=== PATIENT | male | born 1985 | race Caucasian/White ===

== ENCOUNTER 2016-12-24 14:44 | Emergency (ER) | payer BC ==
[2016-12-24 15:08] VITALS: BP 133/73
--- NOTE | 2016-12-24 16:13 | UC ---
Laceration HPI - HPI Summary HPI Summary: Patient presents with sinus pain and pressure x 3 days, with recent URI last week. He denies fever, chills, sinus discharge or bleeding. He states he feels plugged in his sinuses. He denies QUAN, sore throat, chest congestion, chest pain , abdominal pain, nausea, vomiting, or diarrhea. - History Of Current Complaint Chief Complaint: UCGeneralIllness Stated Complaint: SINUS PAIN Time Seen by Provider: 12/24/16 15:40 Hx Obtained From: Patient Laceration Location: Finger Onset/Duration: Sudden Onset, Lasting Hours Severity: Mild Pain Intensity: 0 Pain Scale Used: 0-10 Numeric Aggravating Factors: Movement - Allergies/Home Medications Allergies/Adverse Reactions: Allergies Allergy/AdvReac Type Severity Reaction Status Date / Time No Known Allergies Allergy Verified 12/24/16 15:09 PMH/Surg Hx/FS Hx/Imm Hx Previously Healthy: Yes - Surgical History Surgical History: Yes Surgery Procedure, Year, and Place: RIGHT ELBOW BONE SPUR REMOVAL. HERNIA REPAIR AN INFANT. - Family History Known Family History: Positive: None - Social History Occupation: Employed Full-time Lives: Alone Alcohol Use: Occasionally Substance Use Type: None Smoking Status (MU): Never Smoked Tobacco Review of Systems Constitutional: Negative Skin: Negative Eyes: Negative ENT: Sinus Pain/Tenderness Respiratory: Negative Cardiovascular: Negative Gastrointestinal: Negative Genitourinary: Negative Motor: Negative Neurovascular: Negative Musculoskeletal: Negative Neurological: Negative Psychological: Negative All Other Systems Reviewed And Are Negative: Yes Physical Exam Triage Information Reviewed: Yes Appearance: Well-Appearing Vital Signs: Initial Vital Signs Temp 97.9 F 12/24/16 15:03 Pulse 71 12/24/16 15:03 Resp 18 12/24/16 15:03 BP 133/73 12/24/16 15:03 Pulse Ox 99 12/24/16 15:03 Eye Exam: Normal ENT: Positive: Nasal congestion, Other: - tenderness on palpation of maxillary and frontal sinuses. Dental Exam: Normal Neck exam: Normal Neck: Positive: 1 Respiratory Exam: Normal Cardiovascular Exam: Normal Abdominal Exam: Normal Musculoskeletal Exam: Normal Neurological Exam: Normal Psychological Exam: Normal Skin Exam: Normal Laceration Course/Dx - Course/Dx Course Of Treatment: Patient presents with sinusitis and was treated with ABX. - Differential Dx - Laceration/Wound Differental Diagnoses: Other - sinusitis Provider Diagnoses: sinusitis Discharge - Discharge Plan Condition: Stable Disposition: HOME Prescriptions: Clarithromycin TAB* [Biaxin 500 MG TAB*] 500 mg PO BID #20 tab Patient Education Materials: Sinusitis (ED) Referrals: Denis Shell MD [Primary Care Provider] - Additional Instructions: If your symptoms persist follow up with your PCP.
--- NOTE | 2016-12-24 16:20 | UC ---
Respiratory Complaint HPI - HPI Summary HPI Summary: camilo presents with an unremarkable past medical history. He presents today with complaints of left sided sinus pain and pressure. He states he has been taking sudafed with no improvement. He states the pressure radiates to his left ear. He denies fever, chills, vision or hearing loss, injury or trauma. He denies nasal discharge, or stuffiness. - History of Current Complaint Chief Complaint: UCGeneralIllness Stated Complaint: SINUS PAIN Time Seen by Provider: 12/24/16 15:40 Hx Obtained From: Patient Onset/Duration: Gradual Onset, Lasting Days Severity Initially: Moderate Severity Currently: Moderate Pain Intensity: 0 Pain Scale Used: 0-10 Numeric Aggravating Factors: Other - palpation Alleviating Factors: Nothing Associated Signs And Symptoms: Positive: Negative, Nasal Congestion, Sinus Discomfort - Risk Factors Pulmonary Embolism Risk Factors: Negative Cardiac Risk Factors: Negative Pseudomonas Risk Factors: Negative Tuberculosis Risk Factors: Negative - Allergies/Home Medications Allergies/Adverse Reactions: Allergies Allergy/AdvReac Type Severity Reaction Status Date / Time No Known Allergies Allergy Verified 12/24/16 15:09 PMH/Surg Hx/FS Hx/Imm Hx Previously Healthy: Yes - Surgical History Surgical History: Yes Surgery Procedure, Year, and Place: RIGHT ELBOW BONE SPUR REMOVAL. HERNIA REPAIR AN . - Family History Known Family History: Positive: None - Social History Occupation: Employed Full-time Lives: Alone Alcohol Use: Occasionally Substance Use Type: None Smoking Status (MU): Never Smoked Tobacco Review of Systems Constitutional: Negative Skin: Negative Eyes: Negative ENT: Sinus Pain/Tenderness Respiratory: Negative Cardiovascular: Negative Gastrointestinal: Negative Genitourinary: Negative Motor: Negative Neurovascular: Negative Musculoskeletal: Negative Neurological: Negative Psychological: Negative All Other Systems Reviewed And Are Negative: Yes Physical Exam Triage Information Reviewed: Yes Appearance: Well-Appearing Vital Signs: Initial Vital Signs Temp 97.9 F 12/24/16 15:03 Pulse 71 12/24/16 15:03 Resp 18 12/24/16 15:03 BP 133/73 12/24/16 15:03 Pulse Ox 99 12/24/16 15:03 Eye Exam: Normal ENT Exam: Normal ENT: Positive: Other: - tenderness on palpation of the left maxillary and frontal sinuses. Neck exam: Normal Neck: Positive: 1 Respiratory Exam: Normal Cardiovascular Exam: Normal Abdominal Exam: Normal Musculoskeletal Exam: Normal Neurological Exam: Normal Psychological Exam: Normal Skin Exam: Normal UC Diagnostic Evaluation - Laboratory O2 Sat by Pulse Oximetry: 99 Respiratory Course/Dx - Course Course Of Treatment: Patient was treated for sinusitis. - Differential Dx/Diagnosis Differential Diagnosis/HQI/PQRI: Sinusitis Provider Diagnoses: sinusitis Discharge - Discharge Plan Condition: Stable Disposition: HOME Prescriptions: Clarithromycin TAB* [Biaxin 500 MG TAB*] 500 mg PO BID #20 tab Patient Education Materials: Sinusitis (ED) Referrals: Denis Shell MD [Primary Care Provider] - Additional Instructions: If your symptoms persist follow up with your PCP.
== END 2016-12-24 15:50 | disposition home or self-care (01) ==
LOC: UCEAST 14:44
DX: J01.90 Acute sinusitis, unspecified (principal)
CPT/HCPCS: 99212; G0463

== ENCOUNTER 2017-12-27 15:24 | Emergency (ER) | payer BC ==
[2017-12-27 15:31] VITALS: BP 139/97
--- NOTE | 2017-12-27 15:41 | UC ---
General HPI - HPI Summary HPI Summary: Pleasant 32 yo gentleman presents requesting to be tested for HIV. Does not wish to be tested for other STD's / exposures. Denies recent clear contact, but wants to be sure of status. No recent illness, no fever / chills, no adenopathy, no h/a, no vis or aud changes, no GI or issues, no rash. No p/d/ w. - History of Current Complaint Chief Complaint: UCGeneralIllness Stated Complaint: STD TESTING Time Seen by Provider: 12/27/17 15:39 Hx Obtained From: Patient Pain Intensity: 0 - Allergy/Home Medications Allergies/Adverse Reactions: Allergies Allergy/AdvReac Type Severity Reaction Status Date / Time No Known Allergies Allergy Verified 12/27/17 15:31 Home Medications: Home Medications Hyoscyamine TAB* [Anaspaz 0.125 MG TAB*] 0.125 mg PO PRN 12/27/17 [History] PMH/Surg Hx/FS Hx/Imm Hx Previously Healthy: Yes - Surgical History Surgical History: Yes Surgery Procedure, Year, and Place: RIGHT ELBOW BONE SPUR REMOVAL. HERNIA REPAIR AN INFANT. - Family History Known Family History: Positive: None - Social History Occupation: Employed Full-time Alcohol Use: Occasionally Substance Use Type: None Smoking Status (MU): Never Smoked Tobacco Review of Systems Constitutional: Negative Skin: Negative Eyes: Negative ENT: Negative Respiratory: Negative Cardiovascular: Negative Gastrointestinal: Negative Genitourinary: Negative Motor: Negative Neurovascular: Negative Musculoskeletal: Negative Neurological: Negative Psychological: Negative Is Patient Immunocompromised?: No All Other Systems Reviewed And Are Negative: Yes Physical Exam Triage Information Reviewed: Yes Appearance: Well-Appearing, Well-Nourished Vital Signs: Initial Vital Signs Temp 98.1 F 12/27/17 15:28 Pulse 99 12/27/17 15:28 Resp 16 12/27/17 15:28 BP 139/97 12/27/17 15:28 Pulse Ox 100 12/27/17 15:28 Vital Signs Reviewed: Yes Eye Exam: Normal ENT Exam: Normal Neck exam: Normal Neck: Positive: Supple, Nontender, No Lymphadenopathy Respiratory Exam: Normal Respiratory: Positive: Chest non-tender, Lungs clear, Normal breath sounds, No respiratory distress Cardiovascular Exam: Normal Cardiovascular: Positive: RRR, No Murmur, Pulses Normal, Brisk Capillary Refill Abdominal Exam: Normal Abdomen Description: Positive: Nontender Musculoskeletal Exam: Normal Neurological Exam: Normal Psychological Exam: Normal Skin Exam: Normal Course/Dx - Course Course Of Treatment: HIV testing / counseling reviewed. He plans to follow up with PCP, will call tomorrow for appointment. Aware to seek medical attention for any problems. Declines prophylactic medications, declines testing for other than HIV. Questions as posed answered to the best of my ability. - Differential Dx - Multi-Symptom Provider Diagnoses: HIV testing Discharge - Sign-Out/Discharge Documenting (check all that apply): Patient Departure All imaging exams completed and their final reports reviewed: No Studies - Discharge Plan Condition: Stable Disposition: HOME Patient Education Materials: HIV Transmission (ED) Referrals: Denis Shell MD [Primary Care Provider] - Additional Instructions: You have been tested for HIV. Please scheduled follow up with your primary care physician in the next couple weeks. Seek medical attention for worse or new problems. - Billing Disposition and Condition Condition: STABLE Disposition: Home
== END 2017-12-27 16:35 | disposition home or self-care (01) ==
LOC: UCEAST 15:24
DX: Z11.4 Encounter for screening for human immunodeficiency virus [HIV] (principal)
CPT/HCPCS: 36415; 86703; 99211; G0463